=== PATIENT | male | born 1970 | race African-American/Black ===

== ENCOUNTER 2021-06-24 14:46 | Emergency (ER) | payer BC, OTHER ==
[2021-06-24] MEDS ORDERED: Acetaminophen 325 MG TAB ONE (15:53)
== END 2021-06-24 16:47 | disposition home or self-care (01) ==
LOC: ERS 14:46
DX: S70.01XA Contusion of right hip, initial encounter (principal); M25.561 Pain in right knee; M25.562 Pain in left knee; E11.9 Type 2 diabetes mellitus without complications; E78.5 Hyperlipidemia, unspecified; I10 Essential (primary) hypertension; V49.60XA Unspecified car occupant injured in collision with unspecified motor vehicles in traffic accident, initial encounter
CPT/HCPCS: 72170; 99284